=== PATIENT | female | born 1975 | race Caucasian/White ===

== ENCOUNTER 2016-05-11 07:09 | Inpatient (IN) | payer BC ==
[~2016-05-11] VITALS: Ht 167.6 cm; Wt 81.8 kg
[2016-05-11] MEDS ORDERED: OXYTOCIN 30U/ 0.9% NaCL 500ML 500 ML IV SCH (07:28)
[2016-05-11] MEDS ORDERED: LACTATED RINGERS 1,000 ML IV SCH ×3 (07:28→13:02)
[2016-05-11] MEDS ORDERED: SODIUM CITRATE/CITRIC ACID 30 ML UDC PO ONE (07:30)
[2016-05-11] MEDS ORDERED: LACTATED RINGERS 1,000 ML IVBOLUS ONE (07:30)
[2016-05-11] MEDS ORDERED: METOCLOPRAMIDE 5 MG/ML, 2ML IV ONE (07:30)
[2016-05-11 07:56] VITALS: BP 113/69
[2016-05-11 07:58] LABS: HEMOGLOBIN 12.5 g/dL (11.7-16.4)
[2016-05-11] MEDS ORDERED: METOCLOPRAMIDE 5 MG/ML, 2ML ONE ×2 (09:04→10:09)
[2016-05-11] MEDS ORDERED: SODIUM CITRATE/CITRIC ACID 30 ML UDC ONE (09:04)
[2016-05-11] MEDS ORDERED: OXYTOCIN 30U/ 0.9% NaCL 500ML 500 ML ONE (09:05)
[2016-05-11] MEDS ORDERED: NEWBORN KIT ONE (09:05)
[2016-05-11] MEDS ORDERED: MIDAZOLAM 1 MG/ML, 2ML IV PRN (10:00)
[2016-05-11] MEDS ORDERED: OXYcodone 5 MG/5 ML ORAL.SOL UDC PO PRN (10:00)
[2016-05-11] MEDS ORDERED: LABETALOL 5MG/ML, 20ML IV PRN (10:00)
[2016-05-11] MEDS ORDERED: ONDANSETRON 2MG/ML, 2ML IVPush PRN (10:00)
[2016-05-11] MEDS ORDERED: hydrALAzine 20 MG/ML, 1ML IV PRN (10:00)
[2016-05-11] MEDS ORDERED: HYDROcodone/APAP 7.5-325MG/15ML UDC PO PRN (10:00)
[2016-05-11] MEDS ORDERED: PROMETHAZINE 25 MG/ML, 1ML IV PRN (10:00)
[2016-05-11] MEDS ORDERED: ALBUTEROL SULFATE 2.5 MG/3 ML NPPB PRN (10:00)
[2016-05-11] MEDS ORDERED: MEPERIDINE/PF 25MG/0.5ML IVPush PRN (10:00)
[2016-05-11] MEDS ORDERED: EPHEDRINE 50 MG/ML, 1ML IVPush PRN (10:00)
[2016-05-11] MEDS ORDERED: FENTANYL PF 100 MCG/2ML ONE ×2 (10:01→12:44)
[2016-05-11] MEDS ORDERED: LIDOCAINE 1%, 20ML ONE (10:09)
[2016-05-11] MEDS ORDERED: ONDANSETRON 2MG/ML, 2ML ONE (10:09)
[2016-05-11] MEDS ORDERED: NEOSTIGMINE 1 MG/ML, 10ML ONE (10:09)
[2016-05-11] MEDS ORDERED: CEFAZOLIN 1,000 MG ONE (10:09)
[2016-05-11] MEDS ORDERED: DEXAMETHASONE 4 MG/ML, 1ML ONE (10:09)
[2016-05-11] MEDS ORDERED: SUCCINYLCHOLINE 20 MG/ML, 10ML ONE (10:09)
[2016-05-11] MEDS ORDERED: PROPOFOL 10 MG/ML, 20ML ONE (10:09)
[2016-05-11] MEDS ORDERED: EPHEDRINE 50 MG/ML, 1ML ONE (10:09)
[2016-05-11] MEDS ORDERED: OXYTOCIN 10 UNITS/ML, 1ML ONE (10:09)
[2016-05-11] MEDS ORDERED: HETASTARCH 0.9 % 500 ML ONE (10:58)
[2016-05-11] MEDS ORDERED: FLUORESCEIN SODIUM 500 MG/5 ML ONE (11:18)
[2016-05-11] MEDS ORDERED: OXYcodone 5 MG/5 ML ORAL.SOL UDC ONE (12:44)
[2016-05-11] MEDS: FENTANYL PF 100 MCG/2ML IV PRN ×3 (12:47→13:43)
[2016-05-11] MEDS: LACTATED RINGERS 1,000 ML IV SCH ×2 (13:02→23:02)
[2016-05-11 13:26] LABS: HEMOGLOBIN 10.4 g/dL (11.7-16.4)
[2016-05-11] MEDS ORDERED: ACETAMINOPHEN 325 MG TABLET PO PRN ×3 (13:30)
[2016-05-11] MEDS ORDERED: METOCLOPRAMIDE 5 MG/ML, 2ML IV PRN (13:30)
[2016-05-11] MEDS ORDERED: MEPERIDINE/PF 100 MG/ML IVPush PRN (13:30)
[2016-05-11] MEDS ORDERED: DIPH,PERTUSS(ACELL),TET VAC/PF NC IM-VACC PRN (13:30)
[2016-05-11] MEDS ORDERED: BISACODYL 10 MG SUPP PR PRN (13:30)
[2016-05-11] MEDS ORDERED: CALCIUM CARBONATE 500 MG TAB.CHEW PO PRN (13:30)
[2016-05-11] MEDS ORDERED: MEPERIDINE/PF 50 MG/ML IVPush PRN (13:30)
[2016-05-11] MEDS ORDERED: ONDANSETRON 2MG/ML, 2ML IV PRN (13:30)
[2016-05-11] MEDS ORDERED: GLYCERIN ADULT SUPP PR PRN (13:30)
[2016-05-11 13:38] LABS: BLOOD UREA NITROGEN 7 mg/dL (7-18)
[2016-05-11 13:41] LABS: ASPARTATE AMINO TRANSFERASE 10 U/L (15-37)
[2016-05-11 14:30] VITALS: BP 103/59
[2016-05-11] MEDS: OXYcodone/APAP 5/325MG TABLET PO PRN ×2 (18:27→22:38)
[2016-05-11 19:03] LABS: HEMOGLOBIN 10.1 g/dL (11.7-16.4)
[2016-05-11 19:23] LABS: BLOOD UREA NITROGEN 8 mg/dL (7-18)
[2016-05-11 19:26] LABS: ASPARTATE AMINO TRANSFERASE 11 U/L (15-37)
[2016-05-11 19:40] VITALS: BP 109/70
[2016-05-11] MEDS: SIMETHICONE 80 MG CHEW TAB PO PRN (19:57)
[2016-05-11] MEDS: KETOROLAC 30 MG/1 ML IVPush SCH (19:57)
[2016-05-11] MEDS: DOCUSATE 100 MG CAPSULE PO PRN (22:38)
[2016-05-11 23:00] VITALS: BP 103/65
[2016-05-12] MEDS: KETOROLAC 30 MG/1 ML IVPush SCH ×3 (02:12→15:18)
[2016-05-12 02:45] VITALS: BP 104/63
[2016-05-12] MEDS: SIMETHICONE 80 MG CHEW TAB PO PRN (03:59)
[2016-05-12] MEDS ORDERED: OXYC-302 PO (04:45)
[2016-05-12] MEDS ORDERED: IBUP800T PO (04:46)
[2016-05-12] MEDS ORDERED: DOCU-30 PO (04:47)
[2016-05-12 06:10] LABS: HEMOGLOBIN 9.3 g/dL (11.7-16.4)
[2016-05-12] MEDS: OXYcodone/APAP 5/325MG TABLET PO PRN ×3 (06:52→21:12)
[2016-05-12] MEDS: LACTATED RINGERS 1,000 ML IV SCH ×2 (09:02→19:02)
[2016-05-12 09:10] VITALS: BP 105/63
[2016-05-12] MEDS: PRENATAL VIT/IRON/FA 1 EACH TABLET PO SCH (09:15)
[2016-05-12] MEDS: DOCUSATE 100 MG CAPSULE PO PRN (09:16)
[2016-05-12 15:00] VITALS: BP 87/52
[2016-05-12 21:15] VITALS: BP 99/57
[2016-05-13] MEDS: OXYcodone/APAP 5/325MG TABLET PO PRN ×2 (01:43→21:51)
[2016-05-13] MEDS: IBUPROFEN 600 MG TABLET PO SCH ×4 (01:43→21:51)
[2016-05-13] MEDS: LACTATED RINGERS 1,000 ML IV SCH (05:02)
[2016-05-13 06:17] LABS: HEMOGLOBIN 8.9 g/dL (11.7-16.4)
[2016-05-13 07:30] VITALS: BP 102/65
[2016-05-13] MEDS: PRENATAL VIT/IRON/FA 1 EACH TABLET PO SCH (07:56)
[2016-05-13] MEDS: DOCUSATE 100 MG CAPSULE PO PRN ×2 (07:56→21:51)
[2016-05-13 22:00] VITALS: BP 105/63
[2016-05-14] MEDS: IBUPROFEN 600 MG TABLET PO SCH ×4 (03:46→23:15)
[2016-05-14 08:00] VITALS: BP 100/59
[2016-05-14] MEDS: PRENATAL VIT/IRON/FA 1 EACH TABLET PO SCH (10:36)
[2016-05-14] MEDS: DOCUSATE 100 MG CAPSULE PO PRN ×2 (10:37→23:14)
[2016-05-14 20:45] VITALS: BP 104/67
[2016-05-15] MEDS: IBUPROFEN 600 MG TABLET PO SCH ×2 (05:20→10:33)
[2016-05-15 07:57] VITALS: BP 101/61
[2016-05-15] MEDS: DOCUSATE 100 MG CAPSULE PO PRN (08:54)
[2016-05-15] MEDS: PRENATAL VIT/IRON/FA 1 EACH TABLET PO SCH (08:54)
== END 2016-05-15 15:01 | disposition home or self-care (01) | DRG 765 ==
LOC: LDIP 07:09 → 2NW 14:10
PROVIDERS: ADMIT Obstetrics & Gynecology; ATTEND Obstetrics & Gynecology
PROC: 10D00Z1 Extraction of Products of Conception, Low, Open Approach (ICD-10-PCS; principal; 2016-05-11)
PROC: 0TJB8ZZ Inspection of Bladder, Via Natural or Artificial Opening Endoscopic (ICD-10-PCS; 2016-05-11)
PROC: 0UT90ZZ Resection of Uterus, Open Approach (ICD-10-PCS; 2016-05-11)
PROC: 0UB70ZZ Excision of Bilateral Fallopian Tubes, Open Approach (ICD-10-PCS; 2016-05-11)
PROC: 30233N1 Transfusion of Nonautologous Red Blood Cells into Peripheral Vein, Percutaneous Approach (ICD-10-PCS; 2016-05-11)
DX: O44.03 Complete placenta previa NOS or without hemorrhage, third trimester (principal); O99.354 Diseases of the nervous system complicating childbirth; G43.909 Migraine, unspecified, not intractable, without status migrainosus; O43.213 Placenta accreta, third trimester; O34.219 Maternal care for unspecified type scar from previous cesarean delivery; Z37.0 Single live birth; Z30.2 Encounter for sterilization; Z3A.34 34 weeks gestation of pregnancy; Z98.890 Other specified postprocedural states; Z90.89 Acquired absence of other organs; Z91.040 Latex allergy status; Z91.048 Other nonmedicinal substance allergy status; Z91.09 Other allergy status, other than to drugs and biological substances; O90.81 Anemia of the puerperium; D64.9 Anemia, unspecified
CPT/HCPCS: 36415; 74000; 80053; 82330; 85025; 86850; 86900; 86923; 88307; J0690; J1100; J1885; J2175; J2405; J2704; J2710; J3010; J3490; J0330; J2590; J2765; J7120; P9016